=== PATIENT | female | born 1950 | race Native Hawaiian/Other Pacific Islander ===

== ENCOUNTER 2022-10-08 17:21 | Inpatient (IN) | payer OTHER ==
[~2022-10-08] VITALS: Ht 157.5 cm; Wt 81.4 kg
[2022-10-08] VITALS (12 sets, daily range): BP systolic 117–171; BP diastolic 67–98; TEMP 97.2–97.9; Ht 157.5 cm; Wt 81.4 kg
[2022-10-08 17:55] LABS: PLATELET COUNT 325 K/uL (152-353)
[2022-10-08 18:00] LABS: POTASSIUM 3.8 mmol/L (3.6-5.2)
[2022-10-09 03:38] VITALS: BP 117/73; TEMP 97.4
[2022-10-09 04:21] LABS: PLATELET COUNT 286 K/uL (152-353)
[2022-10-09 04:32] LABS: POTASSIUM 4.5 mmol/L (3.6-5.2)
[2022-10-09 08:00] VITALS: BP 134/76; TEMP 97.4
[2022-10-09 12:00] VITALS: BP 114/79; TEMP 97.2
[2022-10-09 16:00] VITALS: BP 119/74; TEMP 97.4
[2022-10-09 20:00] VITALS: BP 110/77; TEMP 97.5
[2022-10-10] VITALS: BP 116/74; TEMP 97.8
[2022-10-10 04:00] VITALS: BP 130/77; TEMP 98
[2022-10-10 08:00] VITALS: BP 148/82; TEMP 97.3
[2022-10-10 11:57] VITALS: BP 128/73; TEMP 97.9
[2022-10-10 16:00] VITALS: BP 120/82; TEMP 98
[2022-10-10 20:00] VITALS: BP 136/78; TEMP 98.3
[2022-10-11] VITALS (7 sets, daily range): BP systolic 126–147; BP diastolic 70–96; TEMP 97.8–98.6
[2022-10-11 05:50] LABS: PLATELET COUNT 325 K/uL (152-353)
[2022-10-11 06:10] LABS: POTASSIUM 4.8 mmol/L (3.6-5.2)
[2022-10-12 04:00] VITALS: BP 129/84; TEMP 97.8
[2022-10-12 04:49] LABS: PLATELET COUNT 306 K/uL (152-353)
[2022-10-12 05:02] LABS: POTASSIUM 5.4 mmol/L (3.6-5.2)
[2022-10-12 08:00] VITALS: BP 141/85; TEMP 97.6
[2022-10-12 12:00] VITALS: BP 142/88; TEMP 97.5
[2022-10-12 16:00] VITALS: BP 139/90; TEMP 98.5
[2022-10-12 20:00] VITALS: BP 162/88; TEMP 97.9
[2022-10-12 23:39] VITALS: BP 144/96; TEMP 98.3
[2022-10-13 03:41] VITALS: BP 153/97; TEMP 97.6
[2022-10-13 04:45] LABS: PLATELET COUNT 279 K/uL (152-353)
[2022-10-13 05:10] LABS: POTASSIUM 5.6 mmol/L (3.6-5.2)
[2022-10-13 08:00] VITALS: BP 133/89; TEMP 98
[2022-10-13 12:00] VITALS: BP 138/95; TEMP 97.3
[2022-10-13 16:00] VITALS: BP 150/87; TEMP 98.3
[2022-10-13 20:00] VITALS: BP 146/88; TEMP 97.7
[2022-10-14] VITALS (7 sets, daily range): BP systolic 119–168; BP diastolic 68–117; TEMP 97.5–98.96
[2022-10-14 04:50] LABS: PLATELET COUNT 280 K/uL (152-353)
[2022-10-15] VITALS: BP 148/111; TEMP 98
[2022-10-15 04:00] VITALS: BP 157/93; TEMP 97.8
[2022-10-15 05:42] LABS: PLATELET COUNT 298 K/uL (152-353)
[2022-10-15 05:56] LABS: POTASSIUM 4.4 mmol/L (3.6-5.2)
[2022-10-15 08:00] VITALS: BP 162/102; TEMP 97.7
[2022-10-15 11:51] VITALS: BP 137/97; TEMP 97.6
[2022-10-15 15:56] VITALS: BP 129/89; TEMP 97.3
[2022-10-15 20:00] VITALS: BP 159/95; TEMP 98
[2022-10-16] VITALS: BP 149/93; TEMP 98
[2022-10-16 04:00] VITALS: BP 160/95; TEMP 98
[2022-10-16 04:36] LABS: POTASSIUM 4.8 mmol/L (3.6-5.2)
[2022-10-16 04:41] LABS: PLATELET COUNT 312 K/uL (152-353)
[2022-10-16 08:00] VITALS: BP 189/99; TEMP 98.4
[2022-10-16 13:00] VITALS: BP 112/65; TEMP 97.7
[2022-10-16 16:00] VITALS: BP 123/66; TEMP 97.7
[2022-10-16 20:00] VITALS: BP 116/77; TEMP 97.7
[2022-10-17 00:05] VITALS: BP 134/82; TEMP 97.7
[2022-10-17 04:00] VITALS: BP 129/83; TEMP 97.5
[2022-10-17 07:51] LABS: POTASSIUM 4.7 mmol/L (3.6-5.2)
[2022-10-17 07:52] VITALS: BP 131/85; TEMP 97.8
[2022-10-17 08:11] LABS: PLATELET COUNT 313 K/uL (152-353)
[2022-10-17 12:00] VITALS: BP 112/77; TEMP 97.7
[2022-10-17 16:01] VITALS: BP 123/91; TEMP 98.6
[2022-10-17 20:00] VITALS: BP 126/85; TEMP 98.8
[2022-10-18] VITALS: BP 106/65; TEMP 98.3
[2022-10-18 04:00] VITALS: BP 101/78; TEMP 97.8
[2022-10-18 05:23] LABS: PLATELET COUNT 334 K/uL (152-353)
[2022-10-18 08:04] VITALS: BP 110/60; TEMP 98.4
[2022-10-18] MEDS ORDERED: APIX1TAB PO (10:20)
[2022-10-18] MEDS ORDERED: METO-837 PO (10:20)
[2022-10-18] MEDS ORDERED: FUROSEMIDE20 MG PO (10:22)
[2022-10-18 12:00] VITALS: BP 111/75; TEMP 97.6
[2022-10-18 16:00] VITALS: BP 135/91; TEMP 98.9
[2022-10-18 20:00] VITALS: BP 107/71; TEMP 97.9
[2022-10-19] VITALS: BP 137/77; TEMP 98
[2022-10-19 04:00] VITALS: BP 122/83; TEMP 98
[2022-10-19 08:00] VITALS: BP 122/83; TEMP 98.1
[2022-10-19 12:18] VITALS: BP 132/81; TEMP 98.4
[2022-10-19] MEDS ORDERED: WARF5TAB6 PO (15:18)
[2022-10-19] MEDS ORDERED: ENOX120I SC (15:18)
== END 2022-10-19 16:40 | disposition home or self-care (01) | DRG 308 ==
LOC: ED 17:21 → MED/SURG 22:12
PROVIDERS: Family Medicine; Internal Medicine Endocrinology, Diabetes & Metabolism; ADMIT Emergency Medical Technician, Intermediate; ATTEND Internal Medicine
DX: I48.0 Paroxysmal atrial fibrillation (principal); J96.01 Acute respiratory failure with hypoxia; J44.1 Chronic obstructive pulmonary disease with (acute) exacerbation; Z87.891 Personal history of nicotine dependence; Z86.16 Personal history of COVID-19; Z79.01 Long term (current) use of anticoagulants; I10 Essential (primary) hypertension; E66.8 Other obesity; Z68.33 Body mass index [BMI] 33.0-33.9, adult
CPT/HCPCS: 36415; 80048; 80053; 81000; 82272; 82550; 83735; 84484; 85027; 85610; 87502; 87635; 87651; 93005; 94664; 94760; 96361; 96367; 96374; 96375; 96376; 99284; J0360; J0456; J0696; J1650; J1940; J1956; J2270; J2405; J2920; J2930; J3490; Q9963; U0003